=== PATIENT | female | born 2000 | race Caucasian/White ===

== ENCOUNTER → 2021-11-11 | Outpatient (CLI) | payer SELFPAY ==
--- NOTE | 2021-11-11 13:21 | US ---
EXAMINATION TYPE: US OB >= 14 wk fetus DATE OF EXAM: 11/11/2021 COMPARISON: None CLINICAL HISTORY: 21-year-old female Z36.89 CONFIRM GESTATIONAL DATES. TECHNIQUE: Transabdominal (TA) GESTATIONAL AGE / DATING Physician Established: (14 weeks/2 days) EDC: 05/10/2022 Dates by LMP: LMP unknown Dates by First Scan: No previous this is first scan Dates by Current Scan: (14 weeks/3 days) EDC: 05/09/2022 FINDINGS: SURVEY IUP: Single PLACENTA: Posterior PREVIA: Low Lying - tip of placenta 1.2cm from internal cervical os AYAH: 10.4 cm Normal CERVICAL LENGTH (transabdominal: norm > 3.0cm): 4.0 cm BIOMETRY PRESENTATION: Breech LIE: Longitudinal BPD: 2.6 cm 14 weeks / 4 days HC: 9.6 cm 14 weeks / 3 days AC: 7.6 cm 14 weeks / 1 days FL: 1.5 cm 14 weeks / 3 days ESTIMATED WEIGHT IN GRAMS: 94 grams (0 lbs. 3 oz. +/- 1 ounce) ESTIMATED WEIGHT IN LBS/OZ: 0 lbs. 3 oz. WEIGHT PERCENTAGE BASED ON ESTABLISHED DATES: 33% HC/AC: 1.27 Normal FL/AC: 20% HEART RATE: 153 bpm RHYTHM: Normal IMPRESSION: 1. Single live intrauterine with established gestational age of 14 weeks 2 days. Current ul trasound biometry is concordant at 14 weeks 3 days. EFW: 33%. 2. Low-lying posterior placenta. The inferior placental margin measures 1.2 cm from the internal cerv ical os. 3. Complete survey recommended at 18-20 weeks.
== END | disposition home or self-care (01) ==
LOC: RADUSWWP 08:08
PROVIDERS: ATTEND Obstetrics & Gynecology
DX: O32.1XX0 Maternal care for breech presentation, not applicable or unspecified (principal); Z3A.14 14 weeks gestation of pregnancy
CPT/HCPCS: 76805

== ENCOUNTER 2022-05-10 05:37 | Inpatient (IN) | payer OTHER ==
--- NOTE | 2022-05-09 07:44 | P.HPOB ---
History of Present Illness H&P Date: 05/09/22 Chief Complaint: Requested induction of labor This patient is a pleasant 21-year-old 1 para 0 female estimated date of confinement 05/10/2022 estimated gestational age 40-0/7 weeks who presents to labor and delivery for requested induction of labor. Patient's care has been uncomplicated and she is comfortable requested induction at this time. Patient does live approximately 1 hour away from the hospital. Patient did use marijuana prior to the but has not been using during the . Review of Systems Genitourinary: Reports Menstruation: Reports amenorrhea Past Medical History Past Medical History: No Reported History History of Any Multi-Drug Resistant Organisms: None Reported Past Surgical History: No Surgical Hx Reported Past Anesthesia/Blood Transfusion Reactions: No Reported Reaction Past Psychological History: No Psychological Hx Reported Past Alcohol Use History: None Reported Past Drug Use History: None Reported Medications and Allergies Allergies Allergy/AdvReac Type Severity Reaction Status Date / Time No Known Allergies Allergy Verified 05/09/22 07:41 Exam - OBG Physical Exam Abdomen: bowel sounds normal, no diffuse tenderness, no bruit present, no guarding noted, no hepatomegaly, no splenomegaly, no mass Vulva: both: normal Vagina: normal moisture, no discharge Cervix: no lesion (cervix in the office 2 cm soft -2 station.), no discharge Uterus: enlarged (fundal height 38 cm) Results blood work shows she is O positive, rubella immune, RPR nonreactive, HIV is nonreactive, hepatitis B is negative, Glucola was normal, group B strep was negative, ultrasounds have shown normal growth and anatomy. Assessment and Plan Assessment: This is a pleasant 21-year-old 1 para 0 female 40-0/7 weeks gestation admitted to labor and delivery for elective induction of labor. Plan is induction of labor and anticipate vaginal delivery. (1) 40 weeks gestation of Status: Acute Code(s): Z3A.40 - 40 WEEKS GESTATION OF SNOMED Code(s): 88371292 (2) Elective induction of labor planned Status: Acute Code(s): [id number] - SNOMED Code(s): 455713158
[2022-05-10] MEDS ORDERED: OXYTOCIN 30 UNITS/500 ML NS 30 UNIT in SALINE 1 500ML.BAG IV SCH ×2 (06:09→15:03)
[2022-05-10] MEDS ORDERED: TERBUTALINE 1 MG/ML VIAL SQ PRN (06:09)
[2022-05-10] MEDS ORDERED: LIDOCAINE 0.5% (PF) 5 MG/ML (50 ML SDV) SQ PRN (06:09)
[2022-05-10 06:19] LABS: Basophils % (A) 0 %; Eosinophils # (A) 0.1 k/uL (0-0.7); Eosinophils % (A) 1 %; HCT 34.1 % (34.0-46.0); HGB 11.9 gm/dL (11.4-16.0); Lymphocytes # (A) 2.4 k/uL (1.0-4.8); Lymphocytes % (A) 29 %; MCH 32.6 pg (25.0-35.0); MCHC 34.9 g/dL (31.0-37.0); MCV 93.4 fL (80.0-100.0); Mean Platelet Volume 11.1; Monocytes # (A) 0.4 k/uL (0-1.0); Monocytes % (A) 5 %; Neutrophils # (A) 5.4 k/uL (1.3-7.7); Neutrophils % (A) 65 %; Platelet Count 180 k/uL (150-450); RBC 3.65 m/uL (3.80-5.40); RDW 12.7 % (11.5-15.5); WBC 8.4 k/uL (4.0-11.0)
[2022-05-10] MEDS: LACTATED RINGERS 1,000 ML IV SCH ×3 (06:29→10:59)
[2022-05-10] MEDS ORDERED: BUTORPHANOL 1 MG/ML 1 ML VIAL IV PRN (09:27)
[2022-05-10] MEDS ORDERED: ROPIVACAINE 5 MG/ML 20 ML AMPULE ONE (10:43)
[2022-05-10] MEDS ORDERED: SODIUM CHLORIDE 0.9% 100 ML BAG ONE (10:43)
[2022-05-10] MEDS ORDERED: fentaNYL (PF) 50 MCG/ML 5 ML AMP ONE (10:43)
[2022-05-10] MEDS ORDERED: BENZOCAINE/MENTHOL SPRAY 1 GM/SPRAY AEROSOL TOPICAL PRN (15:03)
[2022-05-10] MEDS ORDERED: SIMETHICONE 80 MG CHEWABLE PO PRN (15:03)
[2022-05-10] MEDS ORDERED: HYDROCORTISONE 2.5% RECTAL CREAM 30 GM TUBE RECTAL PRN (15:03)
[2022-05-10] MEDS ORDERED: ZOLPIDEM 5 MG TAB PO PRN (15:03)
[2022-05-10] MEDS ORDERED: diphenhydrAMINE 25 MG CAP PO PRN (15:03)
[2022-05-10] MEDS ORDERED: bisacodyL 10 MG SUPP RECTAL PRN (15:03)
[2022-05-10] MEDS ORDERED: ACETAMINOPHEN TAB 325 MG TAB PO PRN (15:03)
[2022-05-10] MEDS ORDERED: LANOLIN CREAM 5 GM TUBE TOPICAL PRN (15:03)
[2022-05-10] MEDS ORDERED: diphenhydrAMINE 50 MG/ML 1 ML VIAL IVP PRN (15:03)
[2022-05-10] MEDS: SENNOSIDES-DOCUSATE SODIUM 1 EACH TAB PO SCH ×2 (15:12→21:04)
--- NOTE | 2022-05-10 17:17 | P.PROBDLV ---
Vaginal Delivery Note - . Vaginal Delivery Note: Normal vaginal delivery viable female Apgars 9 and 9 delivery time is 1449 hrs. Please see dictated H&P for intimate details of this patient's admission. Brief summary this is a pleasant 21-year-old 1 para 0 female 40-0/7 weeks gestation admitted to labor and delivery for induction of labor. Admission patient is 2-3 simmers dilated is artificial rupture membranes for clear fluid. Labor is induced with Pitocin per protocol. She received one dose of Stadol and then an epidural for pain control. Patient progresses quickly pushes the head to the perineum. Despite perineal massage perineum felt constricted therefore midline episiotomy is made. With this we then have delivery controlled of the infant's head over the intact perineum. 's head is straight occiput anterior presentation. Mouth and nares are bulb suctioned. With gentle downward traction we then have deliver the anterior posterior shoulder and rest this infant's body. This is a vigorous viable female Apgars are 9 and 9 delivery time is 1449 hrs. After delivery of the the umbilical cord is Alexander pulsating then doubly clamped and cut. The placenta is then spontaneously delivered intact. Inspection of the perineum shows a second-degree midline lacerations repaired with 3-0 Vicryl usual fashion. Excellent reapproximation is noted. All counts are correct 3. There are no complications. Infant and mother are stable delivery room.
[2022-05-10] MEDS: IBUPROFEN 600 MG TAB PO PRN (21:04)
--- NOTE | 2022-05-11 06:23 | P.PNOBGVD ---
Subjective - Subjective Patient reports: Reports appetite normal, Reports voiding normally, Reports pain well controlled, Reports ambulating normally : doing well Objective - Latest Vital Signs Latest vital signs: Vital Signs Temp Pulse Resp BP Pulse Ox 05/11/22 00:00 97.7 F 84 16 120/76 98 05/10/22 20:00 98.5 F 97 16 105/65 97 05/10/22 19:20 97 16 05/10/22 17:04 95 16 119/59 05/10/22 16:34 96 16 103/58 05/10/22 16:04 106 H 16 110/63 05/10/22 15:49 105 H 16 112/65 05/10/22 15:34 99 16 104/55 05/10/22 15:19 105 H 16 106/58 05/10/22 15:04 98.3 F 112 H 16 135/62 Intake and Output 05/10/22 05/10/22 05/11/22 14:59 22:59 06:59 Intake Total 16.533 1127 Output Total 150 267 Balance -133.467 860 Intake: Intake, IV Titration 16.533 167 Amount Oxytocin 30 Units/500 ml 16.533 167 Ns 30 unit In Saline 1 500ml.bag @ Per Protocol IV .Q0M SOLO Rx#:[id number] Oral 960 Output: Urine 150 Estimated Blood Loss 150 Output, Quantitative 117 Blood Loss Other: Voiding Method Toilet Toilet # Voids 1 1 - Exam Lungs: bilateral: normal Chest: Normal S1, Normal S2 Extremities: Present: normal Abdomen: Present: normal appearance, soft Uterus: Present: normal, firm Assessment and Plan Assessment: day #1. Patient is resting without complaints and wishes to go home. Vital signs are stable and she is afebrile. Uterus is firm nontender and she is having normal lochia. My impression this is a normal course. Plan is to continue routine care discharge home later today (1) 40 weeks gestation of Current Visit: No Status: Acute Code(s): Z3A.40 - 40 WEEKS GESTATION OF SNOMED Code(s): 76593908 (2) Elective induction of labor planned Current Visit: No Status: Acute Code(s): [id number] - SNOMED Code(s): 154144765
--- NOTE | 2022-05-11 06:27 | P.DS ---
Providers Date of admission: 05/10/22 05:37 Expected date of discharge: 05/11/22 Attending physician: Bharat Chandler Primary care physician: Stated None - Discharge Diagnosis(es) (1) 40 weeks gestation of Current Visit: No Status: Acute (2) Elective induction of labor planned Current Visit: No Status: Acute Hospital Course: Please see dictated H&P for intimate details of this patient's admission. Brief summary is a pleasant 21-year-old 1 para 0 female 40-0/7 weeks gestation admitted to labor and delivery for requested induction of labor. Patient is admitted she is uncomplicated induction of labor goes on to have a vaginal delivery viable female . Please see dictated delivery note. day 1 patient's felt be stable for discharge home follow up with me in 6 weeks. Procedures: Normal vaginal delivery Patient Condition at Discharge: Good Plan - Discharge Summary New Discharge Prescriptions: No Action Vit No.179/Iron/Folic [ Tablet] 1 each PO DAILY Discharge Medication List Vit No.179/Iron/Folic [ Tablet] 1 each PO DAILY 05/10/22 [History] Follow up Appointment(s)/Referral(s): Bharat Chandler MD [STAFF PHYSICIAN] - 06/13/22 8:45 am Patient Instructions/Handouts: Vaginal Delivery (DC) Activity/Diet/Wound Care/Special Instructions: No intercourse or anything per vagina for 6 weeks. Please call if any fever, chills, excessive vaginal bleeding, and/or abdominal pain Discharge Disposition: HOME SELF-CARE
[2022-05-11] MEDS: IBUPROFEN 600 MG TAB PO PRN (06:48)
[2022-05-11 08:30] LABS: Basophils % (A) 0 %; Eosinophils # (A) 0.1 k/uL (0-0.7); Eosinophils % (A) 0 %; HCT 31.1 % (34.0-46.0); HGB 10.6 gm/dL (11.4-16.0); Lymphocytes # (A) 1.9 k/uL (1.0-4.8); Lymphocytes % (A) 17 %; MCH 32.7 pg (25.0-35.0); MCHC 34.2 g/dL (31.0-37.0); MCV 95.5 fL (80.0-100.0); Mean Platelet Volume 12.1; Monocytes # (A) 0.5 k/uL (0-1.0); Monocytes % (A) 4 %; Neutrophils # (A) 8.5 k/uL (1.3-7.7); Neutrophils % (A) 77 %; RBC 3.26 m/uL (3.80-5.40); WBC 11.1 k/uL (4.0-11.0)
[2022-05-11] MEDS: SENNOSIDES-DOCUSATE SODIUM 1 EACH TAB PO SCH (08:39)
[2022-05-11 09:06] VITALS: BP 95/56; PULSE 88; RESP 18; TEMP 98.1
[2022-05-11 13:04] LABS: Large Platelets Present; Platelet Count 152 k/uL (150-450)
== END 2022-05-11 16:00 | disposition home or self-care (01) | DRG 807 ==
LOC: 4FBP 05:37
PROVIDERS: ADMIT Obstetrics & Gynecology; ATTEND Obstetrics & Gynecology
PROC: 10E0XZZ Delivery of Products of Conception, External Approach (ICD-10-PCS; principal; 2022-05-10)
PROC: 4A0HXCZ Measurement of Products of Conception, Cardiac Rate, External Approach (ICD-10-PCS; 2022-05-10)
PROC: 3E033VJ Introduction of Other Hormone into Peripheral Vein, Percutaneous Approach (ICD-10-PCS; 2022-05-10)
PROC: 10907ZC Drainage of Amniotic Fluid, Therapeutic from Products of Conception, Via Natural or Artificial Opening (ICD-10-PCS; 2022-05-10)
DX: O80 Encounter for full-term uncomplicated delivery (principal); Z37.0 Single live birth; Z3A.40 40 weeks gestation of pregnancy
CPT/HCPCS: 85025; 86850; 86900; 86901